=== PATIENT | female | born 1975 | race Caucasian/White ===

== ENCOUNTER 2020-02-12 18:34 | Inpatient (IN) | payer OTHER ==
[~2020-02-12] VITALS: Ht 162.6 cm; Wt 93.1 kg
[2020-02-12 20:38] LABS: CALCIUM 9.1 mg/dL (8.5-10.1); CARBON DIOXIDE 26.5 mmol/L (21-32); CHLORIDE SERUM 105 mmol/L (98-107); CREATININE SERUM 0.7 mg/dL (0.6-1.0); GFR1 > 60 mL/min; GLUCOSE SERUM 95 mg/dL (74-106); POTASSIUM SERUM 4.3 mmol/L (3.5-5.1); SODIUM SERUM 141 mmol/L (136-145)
[2020-02-12 20:42] LABS: ALBUMIN 3.8 g/dL (3.4-5.0); ALKALINE PHOSPHATASE 52 U/L (46-116); ALT/SGPT 35 U/L (14-59); AST/SGOT 24 U/L (15-37); BILIRUBIN TOTAL 0.35 mg/dL (0.20-1.00); C REACTIVE PROTEIN 0.7 mg/dL (<=0.9); LACTIC DEHYDROGENASE (LDH) 353 U/L (100-190); TOTAL PROTEIN, SERUM 7.4 g/dL (6.4-8.2)
[2020-02-12 21:41] LABS: RED CELL DISTRIBUTION WIDTH 15.5 % (11.5-14.5)
[2020-02-12 21:46] LABS: PLATELET COUNT 39 x10^3mcL (130-400)
[2020-02-12 22:26] LABS: MONOCYTE 4 % (0-7); PLATELET MORPHOLOGY PLATELETS DECREASED; SEGMENTED NEUTROPHILS 8 % (37-75); rbc morphology (normal/abnorm) ABNORMAL (NORMAL)
[2020-02-12 22:27] LABS: PATH REVIEW for HEMA YES
[2020-02-12 22:34] LABS: UA SPECIFIC GRAVITY <=1.005 (1.005-1.035); microscopic required? YES; urine erythrocyte TRACE (NEGATIVE)
[2020-02-13] MEDS ORDERED: MASON NATURAL1000 IU (00:06)
[2020-02-13 01:16] VITALS: BP 136/76
[2020-02-13 01:19] VITALS: Ht 162.6 cm; Wt 93.1 kg
[2020-02-13 05:56] VITALS: BP 126/65
[2020-02-13 06:43] LABS: ALBUMIN 3.5 g/dL (3.4-5.0); ALKALINE PHOSPHATASE 46 U/L (46-116); ALT/SGPT 32 U/L (14-59); AST/SGOT 22 U/L (15-37); BILIRUBIN TOTAL 0.3 mg/dL (0.20-1.00); CALCIUM 8.4 mg/dL (8.5-10.1); CHLORIDE SERUM 108 mmol/L (98-107); CREATININE SERUM 0.7 mg/dL (0.6-1.0); GFR1 > 60 mL/min; GLUCOSE SERUM 92 mg/dL (74-106); HDL CHOLESTEROL 38 mg/dL (40-60); MAGNESIUM 2.2 mg/dL (1.8-2.4); PHOSPHOROUS 3.2 mg/dL (2.5-4.9); POTASSIUM SERUM 4.2 mmol/L (3.5-5.1); SODIUM SERUM 143 mmol/L (136-145); TOTAL PROTEIN, SERUM 6.6 g/dL (6.4-8.2); TRIGLYCERIDES 90 mg/dL (<150)
[2020-02-13 06:44] LABS: CHOLESTEROL 129 mg/dL (<200); CHOLESTEROL/HDL RATIO 3.4
[2020-02-13 07:12] LABS: RED BLOOD CELLS 5.19 M/mm3 (4.10-5.10)
[2020-02-13 08:34] VITALS: BP 127/73
[2020-02-13 12:29] VITALS: BP 131/72
[2020-02-13 20:57] VITALS: BP 108/55
[2020-02-14 06:05] VITALS: BP 135/73
[2020-02-14 07:08] LABS: ALBUMIN 3.5 g/dL (3.4-5.0); ALKALINE PHOSPHATASE 45 U/L (46-116); ALT/SGPT 33 U/L (14-59); AST/SGOT 24 U/L (15-37); BILIRUBIN TOTAL 0.3 mg/dL (0.20-1.00); CALCIUM 8.4 mg/dL (8.5-10.1); CARBON DIOXIDE 27.6 mmol/L (21-32); CHLORIDE SERUM 106 mmol/L (98-107); CREATININE SERUM 0.8 mg/dL (0.6-1.0); GFR1 > 60 mL/min; GLUCOSE SERUM 88 mg/dL (74-106); MAGNESIUM 2.2 mg/dL (1.8-2.4); PHOSPHOROUS 3.3 mg/dL (2.5-4.9); SODIUM SERUM 139 mmol/L (136-145); TOTAL PROTEIN, SERUM 6.7 g/dL (6.4-8.2)
[2020-02-14 07:11] LABS: PLATELET COUNT 35 x10^3mcL (130-400)
[2020-02-14 08:29] VITALS: BP 116/67
[2020-02-14 11:54] VITALS: BP 113/69
[2020-02-14 13:22] LABS: MONOCYTE 6 % (0-7); SEGMENTED NEUTROPHILS 7 % (37-75); rbc morphology (normal/abnorm) NORMAL (NORMAL)
[2020-02-14 16:43] VITALS: BP 135/71
[2020-02-14 19:45] VITALS: BP 135/71
[2020-02-14 21:20] VITALS: BP 118/70
== END 2020-02-14 21:46 | disposition short-term general hospital (02) | DRG 660 ==
LOC: ED 18:34 → DU 22:02
PROVIDERS: Emergency Medicine; ADMIT Hospitalist; ATTEND Hospitalist
PROC: 30233Q1 Transfusion of Nonautologous White Cells into Peripheral Vein, Percutaneous Approach (ICD-10-PCS; principal; 2020-02-14)
DX: D70.9 Neutropenia, unspecified (principal); D69.42 Congenital and hereditary thrombocytopenia purpura; D61.818 Other pancytopenia; D50.9 Iron deficiency anemia, unspecified; Z20.828 Contact with and (suspected) exposure to other viral communicable diseases; Z83.3 Family history of diabetes mellitus; Z80.52 Family history of malignant neoplasm of bladder; Z80.41 Family history of malignant neoplasm of ovary
CPT/HCPCS: 36600; 83880; 85378; 87804; G0378; J2185; J2543; J7050; P9035; Q0092; Q0163; U0003